=== PATIENT | female | born 1960 | race American Indian/Alaskan Native ===

== ENCOUNTER 2017-11-07 10:44 | Emergency (ER) | payer BC, OTHER ==
[2017-11-07 11:04] VITALS: BP 130/67; PULSE 63; RESP 16; TEMP 98; O2SAT 96
[2017-11-07] MEDS ORDERED: Sodium Chloride 0.9% 1,000 ML IV STA (11:15)
--- NOTE | 2017-11-07 11:15 | ED PDOC ---
HPI: General Adult Time Seen by Provider: 11/07/17 10:55 Chief Complaint (Nursing): GI Problem Chief Complaint (Provider): rib pain, nausea/diarrhea History Per: Patient History/Exam Limitations: no limitations Onset/Duration Of Symptoms: Days (2), Gradual Current Symptoms Are (Timing): Still Present Severity: Moderate Additional Complaint(s): 57yo female c/o flu like symptoms of myalgia, rib pains, cough, mild headache, nausea. Past Medical History Reviewed: Historical Data, Nursing Documentation, Vital Signs Vital Signs: Last Vital Signs Temp 98.0 F 11/07/17 11:04 Pulse 63 11/07/17 11:04 Resp 16 11/07/17 11:04 BP 130/67 11/07/17 11:04 Pulse Ox 96 11/07/17 11:15 - Medical History PMH: Anxiety, Bipolar Disorder, CHF Other PMH: fibromyalgia - Surgical History Other surgeries: partial hysterectomy - Family History Family History: States: Unknown Family Hx - Living Arrangements Living Arrangements: With Family - Social History Current smoker - smoking cessation education provided: Yes - Home Medications Home Medications: Ambulatory Orders Medication Instructions Recorded Ibuprofen [Motrin Tab] 600 mg PO Q6 PRN #15 tab 11/07/17 Ondansetron [Zofran] 4 mg PO Q6H PRN #10 tab 11/07/17 Oseltamivir [Tamiflu] 75 mg PO BID #10 cap 11/07/17 - Allergies Allergies/Adverse Reactions: Allergies Allergy/AdvReac Type Severity Reaction Status Date / Time banana Allergy Severe ANAPHYLAXIS Verified 11/07/17 11:01 hazelnut Allergy Severe ANAPHYLAXIS Verified 11/07/17 11:01 MACADAMIA NUT Allergy Severe ANAPHYLAXIS Uncoded 01/24/16 10:13 Review of Systems ROS Statement: Except As Marked, All Systems Reviewed And Found Negative Constitutional: Negative for: Fever, Chills Eyes: Negative for: Eyelid Inflammation ENT: Positive for: Throat Pain. Negative for: Ear Pain, Nose Pain Cardiovascular: Negative for: Chest Pain, Palpitations Respiratory: Positive for: Cough. Negative for: Shortness of Breath Gastrointestinal: Positive for: Nausea Genitourinary Female: Negative for: Dysuria Neurological: Positive for: Headache, Dizziness. Negative for: Weakness, Numbness Psych: Negative for: Suicidal ideation Physical Exam - Reviewed Nursing Documentation Reviewed: Yes Vital Signs Reviewed: Yes - Physical Exam Appears: Positive for: Well, Non-toxic, No Acute Distress Head Exam: Positive for: ATRAUMATIC, NORMAL INSPECTION, NORMOCEPHALIC Skin: Positive for: Normal Color, Warm, DRY Eye Exam: Positive for: EOMI, Normal appearance, PERRL ENT: Positive for: Normal ENT Inspection Neck: Positive for: Normal, Painless ROM Cardiovascular/Chest: Positive for: Regular Rate, Rhythm Respiratory: Positive for: CNT, Normal Breath Sounds Gastrointestinal/Abdominal: Positive for: Normal Exam, Bowel Sounds, Soft Back: Positive for: Normal Inspection Extremity: Positive for: Normal ROM Neurologic/Psych: Positive for: Alert, Oriented - Laboratory Results Result Diagrams: 11/07/17 11:55 11/07/17 11:55 - ECG O2 Sat by Pulse Oximetry: 96 Medical Decision Making Medical Decision Making: labs reviewed, + influenza chem and cbc otherwise unremarkable IVF and analgesic initiated Will DC Rx tamiflu, risks/benefits of medication discussed Followup PMD, avoid contact others x7d Disposition - Clinical Impression Clinical Impression: Influenza, Nausea - Patient ED Disposition Is Patient to be Admitted: No Counseled Patient/Family Regarding: Studies Performed, Diagnosis, Need For Followup, Rx Given - Disposition Disposition: Routine/Home Disposition Time: 13:01 Condition: STABLE Additional Instructions: Return to ER for any difficulty breathing, worsening symptoms or any concern. Prescriptions: Ibuprofen [Motrin Tab] 600 mg PO Q6 PRN #15 tab PRN Reason: Pain, Moderate (4-7) Ondansetron [Zofran] 4 mg PO Q6H PRN #10 tab PRN Reason: Nausea/Vomiting Oseltamivir [Tamiflu] 75 mg PO BID #10 cap Instructions: Influenza (ED), Acute Nausea and Vomiting (ED), Musculoskeletal Pain (ED) Forms: [employer] (Kiswahili), [facility] ED School/Work Excuse
[2017-11-07 11:53] LABS: SQUAMOUS EPITHIAL 1 /hpf (0-5); URINE BACTERIA RARE (<OCC); URINE BILIRUBIN NEGATIVE (NEGATIVE); URINE BLOOD SMALL (NEGATIVE); URINE CLARITY SLIGHTY-CLOUDY (Clear); URINE COLOR YELLOW (YELLOW); URINE GLUCOSE (UA) NEG (Normal); URINE LEUKOCYTE ESTERASE NEG Leu/uL (Negative); URINE NITRATE NEGATIVE (NEGATIVE); URINE PROTEIN NEGATIVE (NEGATIVE); URINE UROBILINOGEN 0.2-1.0 mg/dL (0.2-1.0)
[2017-11-07 12:32] LABS: BASO # 0.1 K/uL (0.0-0.2); BASO % 0.9 % (0.0-2.0); EOS # 0.1 K/uL (0.0-0.7); EOS % 0.8 % (0.0-4.0); LYMPH # 3.3 K/uL (1.0-4.3); LYMPH % 30.3 % (20.0-40.0); MEAN CELL VOLUME 84.6 fl (81.0-99.0); MEAN CORPUSCULAR HEMOGLOBIN 27.7 pg (27.0-31.0); MEAN CORPUSCULAR HGB CONC 32.7 g/dL (33.0-37.0); MONO # 0.6 K/uL (0.0-0.8); MONO % 5.3 % (0.0-10.0); NEUT # 6.8 K/uL (1.8-7.0); NEUT % 62.7 % (50.0-75.0); NRBC % 0.1 % (0.0-0.0); RBC 5.06 Mil/uL (3.80-5.20); RED CELL DISTRIBUTION WIDTH 13.3 % (11.5-14.5); WHITE BLOOD COUNT 10.9 K/uL (4.8-10.8)
[2017-11-07 12:45] LABS: ALB/GLOB RATIO 1.2 (1.0-2.1); ALBUMIN 4.5 g/dL (3.5-5.0); CALCIUM 9.7 mg/dL (8.4-10.2); GFR AFRICAN-AMERICAN > 60; GFR NON-AFRICAN AMERICAN > 60; LIPASE 51 U/L (23-300)
[2017-11-07 12:57] LABS: ALT/SGPT 32 U/L (9-52); AST/SGOT 29 U/L (14-36); BLOOD UREA NITROGEN 16 mg/dl (7-17)
== END 2017-11-07 13:23 | disposition home or self-care (01) ==
LOC: H.ER 10:44
DX: J11.1 Influenza due to unidentified influenza virus with other respiratory manifestations (principal); R11.0 Nausea; Z86.59 Personal history of other mental and behavioral disorders; I50.9 Heart failure, unspecified; F17.200 Nicotine dependence, unspecified, uncomplicated
CPT/HCPCS: 80053; 81003; 82550; 83690; 84484; 85025; 87804; 96374; 99284; J2405; J7040

== ENCOUNTER 2017-12-18 08:04 | Emergency (ER) | payer BC ==
[2017-12-18 08:27] VITALS: RESP 16
[2017-12-18] MEDS ORDERED: Albuterol-Ipratrop 3 mg / 0.5 (3 ml) UD INH STA ×2 (09:42→09:43)
[2017-12-18] MEDS ORDERED: Sodium Chloride 0.9% 1,000 ML IV STA (09:44)
--- NOTE | 2017-12-18 09:47 | ED PDOC ---
HPI: General Adult Time Seen by Provider: 12/18/17 09:30 Chief Complaint (Nursing): Cough, Cold, Congestion Chief Complaint (Provider): uri/cough History Per: Patient (57 y/o female h/o Bipolar disorder/Fibromyalgia here with complaint of cough x 2 days associated now with chest tightness since last night. Denies any fevers or chills. No h/o asthma/smoking. ) Past Medical History Reviewed: Historical Data, Nursing Documentation, Vital Signs Vital Signs: Last Vital Signs Temp 97 F L 12/18/17 08:17 Pulse 83 12/18/17 08:17 Resp 16 12/18/17 08:17 BP 135/83 12/18/17 08:17 Pulse Ox 98 12/18/17 11:45 - Medical History PMH: Anxiety, Bipolar Disorder, CHF - Family History Family History: States: Unknown Family Hx - Home Medications Home Medications: Ambulatory Orders Medication Instructions Recorded Ibuprofen [Motrin Tab] 600 mg PO Q6 PRN #15 tab 11/07/17 Ondansetron [Zofran] 4 mg PO Q6H PRN #10 tab 11/07/17 Oseltamivir [Tamiflu] 75 mg PO BID #10 cap 11/07/17 Acetaminophen [Acetaminophen Extra 2 tab PO Q6 PRN #24 tablet 12/18/17 Strength] Albuterol 0.083% [Albuterol 0.083% 2.5 mg IH Q8 PRN #100 neb 12/18/17 Inhal Shantel (2.5 mg/3 ml) UD] Mask, Face [Nebulizer Aerosol Mask 1 dev XX PRN PRN #1 dev 12/18/17 Adult] Nebulizer [Aeroeclipse II] 1 each MC Q8 PRN #1 each 12/18/17 Oseltamivir [Tamiflu] 75 mg PO BID #9 cap 12/18/17 Prednisone [Deltasone] 3 tab PO DAILY #12 tablet 12/18/17 - Allergies Allergies/Adverse Reactions: Allergies Allergy/AdvReac Type Severity Reaction Status Date / Time banana Allergy Severe ANAPHYLAXIS Verified 11/07/17 11:01 hazelnut Allergy Severe ANAPHYLAXIS Verified 11/07/17 11:01 MACADAMIA NUT Allergy Severe ANAPHYLAXIS Uncoded 01/24/16 10:13 Review of Systems ROS Statement: Except As Marked, All Systems Reviewed And Found Negative Cardiovascular: Positive for: Chest Pain Respiratory: Positive for: Cough Physical Exam - Reviewed Nursing Documentation Reviewed: Yes Vital Signs Reviewed: Yes - Physical Exam Appears: Positive for: Well, Non-toxic, No Acute Distress Head Exam: Positive for: ATRAUMATIC, NORMAL INSPECTION, NORMOCEPHALIC Skin: Positive for: Normal Color, Warm, DRY Eye Exam: Positive for: EOMI, Normal appearance, PERRL ENT: Positive for: Normal ENT Inspection Neck: Positive for: Normal, Painless ROM Cardiovascular/Chest: Positive for: Regular Rate, Rhythm Respiratory: Positive for: CNT, Normal Breath Sounds Gastrointestinal/Abdominal: Positive for: Normal Exam, Bowel Sounds, Soft Back: Positive for: Normal Inspection Extremity: Positive for: Normal ROM Neurologic/Psych: Positive for: Alert, Oriented - Laboratory Results Result Diagrams: 12/18/17 10:05 12/18/17 09:00 - ECG ECG Rhythm: Positive for: Sinus Rhythm (NSR 64BPM; NO ECTOPY NO ACUTE CHANGES) O2 Sat by Pulse Oximetry: 98 - Progress ED Course And Treament: FLU A POSITIVE NS 1 LITER 500ML PER HOUR DUONEB X 2 DOSES SOLUMEDROL 125 MG IV X 1 DOSE TAMIFLU 75MG X 1 DOSE Disposition - Clinical Impression Clinical Impression: Influenza A, Asthma exacerbation - Patient ED Disposition Is Patient to be Admitted: No - Disposition Disposition: Routine/Home Disposition Time: 12:21 Condition: FAIR Additional Instructions: FOLLOW UP WITH YOUR PMD WITHOUT FAIL IN 2-3 DAYS PLEASE Prescriptions: Acetaminophen [Acetaminophen Extra Strength] 2 tab PO Q6 PRN #24 tablet PRN Reason: Fever >100.4 F Albuterol 0.083% [Albuterol 0.083% Inhal Shantel (2.5 mg/3 ml) UD] 2.5 mg IH Q8 PRN #100 neb PRN Reason: Shortness Of Breath Mask, Face [Nebulizer Aerosol Mask Adult] 1 dev XX PRN PRN #1 dev PRN Reason: Shortness Of Breath Nebulizer [Aeroeclipse II] 1 each MC Q8 PRN #1 each PRN Reason: Shortness Of Breath Oseltamivir [Tamiflu] 75 mg PO BID #9 cap Prednisone [Deltasone] 3 tab PO DAILY #12 tablet Instructions: Asthma, Adult (DC), Flu, Adult (DC) Forms: [employer] (Kyrgyz), [facility] ED School/Work Excuse
[2017-12-18 10:04] LABS: VENOUS BLOOD GAS BASE EXCESS -0.8 mmol/L (0.0-2.0); VENOUS BLOOD GAS PCO2 41 mmHg (40-60); VENOUS BLOOD GAS PO2 39 mm/Hg (30-55); VENOUS BLOOD PH 7.38 (7.32-7.43)
[2017-12-18 10:11] LABS: BASO % 0.5 % (0.0-2.0); EOS # 0.1 K/uL (0.0-0.7); EOS % 1.8 % (0.0-4.0); HEMOGLOBIN 14.3 g/dL (12.0-16.0); LYMPH # 1.4 K/uL (1.0-4.3); LYMPH % 18.9 % (20.0-40.0); MEAN CELL VOLUME 85.4 fl (81.0-99.0); MEAN CORPUSCULAR HEMOGLOBIN 27.7 pg (27.0-31.0); MEAN CORPUSCULAR HGB CONC 32.5 g/dL (33.0-37.0); MEAN PLATELET VOLUME 8.8 fl (7.2-11.7); MONO % 13.3 % (0.0-10.0); NEUT # 4.8 K/uL (1.8-7.0); NEUT % 65.5 % (50.0-75.0); NRBC % 0.1 % (0.0-0.0); RBC 5.15 Mil/uL (3.80-5.20); RED CELL DISTRIBUTION WIDTH 13.7 % (11.5-14.5); WHITE BLOOD COUNT 7.3 K/uL (4.8-10.8)
[2017-12-18 10:25] LABS: CALCIUM 9.4 mg/dL (8.4-10.2); GFR AFRICAN-AMERICAN > 60; GFR NON-AFRICAN AMERICAN > 60
--- NOTE | 2017-12-18 10:28 | RAD ---
HISTORY: cp COMPARISON: Chest radiographs 12/18/2017 TECHNIQUE: Chest PA and lateral FINDINGS: LUNGS: No active pulmonary disease. PLEURA: No significant pleural effusion identified. No pneumothorax apparent. CARDIOVASCULAR: Normal. OSSEOUS STRUCTURES: No significant abnormalities. VISUALIZED UPPER ABDOMEN: Normal. OTHER FINDINGS: None. IMPRESSION: No interval acute cardiopulmonary disease appreciated.
[2017-12-18 10:34] LABS: B-TYPE NATRIURETIC PEPTIDE 32.8 pg/ml (0-900)
[2017-12-18 10:35] LABS: BLOOD UREA NITROGEN 12 mg/dl (7-17)
[2017-12-18 13:00] VITALS: BP 125/80; PULSE 89; TEMP 97.9; O2SAT 99
--- NOTE | 2017-12-19 18:10 | CARD ---
APPROVED REPORT EKG Measurement Heart [id number] <Conclusion> Normal sinus rhythm Possible Left atrial enlargement Borderline ECG
== END 2017-12-18 13:03 | disposition home or self-care (01) ==
LOC: H.ER 08:04
DX: J09.X2 Influenza due to identified novel influenza A virus with other respiratory manifestations (principal); J45.901 Unspecified asthma with (acute) exacerbation; F31.9 Bipolar disorder, unspecified; F41.9 Anxiety disorder, unspecified; M79.7 Fibromyalgia; I50.9 Heart failure, unspecified
CPT/HCPCS: 71046; 80048; 82803; 83735; 83880; 84484; 85025; 87040; 87804; 93005; 96361; 96374; 96375; 99283; J2405; J2930; J7040

== ENCOUNTER 2018-05-06 07:59 | Emergency (ER) | payer OTHER ==
[2018-05-06] MEDS ORDERED: Albuterol-Ipratrop 3 mg / 0.5 (3 ml) UD IH STA (08:33)
[2018-05-06] MEDS ORDERED: Albuterol-Ipratrop 3 mg / 0.5 (3 ml) UD ONE (08:38)
--- NOTE | 2018-05-06 08:38 | ED PDOC ---
HPI: CCC, URI, Sore Throat Time Seen by Provider: 05/06/18 08:15 Chief Complaint (Nursing): Cough, Cold, Congestion Chief Complaint (Provider): Cough, congestion and headache History Per: Patient History/Exam Limitations: no limitations Onset/Duration Of Symptoms: Days (x2) Current Symptoms Are (Timing): Still Present Location Of Pain: Headache Associated Symptoms: Chills, Cough, Nasal Congestion. denies: Fever, Sputum Ear Symptoms: Bilateral: None Additional Complaint(s): Leanna Wright is a 58 year old female, with a past medical history of asthma and fibromyalgia, who presents to the emergency department complaining of a nonproductive cough, congestion and headache onset for x2 days. Patient reports chest pain and headache with cough. Patient states he has had chills but denies any fever. No further medical complaints. PMD: Shirley Costello Past Medical History Reviewed: Historical Data, Nursing Documentation, Vital Signs Vital Signs: Last Vital Signs Temp 97.8 F 05/06/18 08:05 Pulse 79 05/06/18 08:05 Resp 19 05/06/18 08:05 BP 147/90 05/06/18 08:05 Pulse Ox 96 05/06/18 08:42 - Medical History PMH: Anxiety, Asthma, Bipolar Disorder, CHF, Fibromyalgia - Surgical History Surgical History: No Surg Hx - Family History Family History: States: Unknown Family Hx - Home Medications Home Medications: Ambulatory Orders Medication Instructions Recorded Ibuprofen [Motrin Tab] 600 mg PO Q6 PRN #15 tab 11/07/17 Ondansetron [Zofran] 4 mg PO Q6H PRN #10 tab 11/07/17 Oseltamivir [Tamiflu] 75 mg PO BID #10 cap 11/07/17 Acetaminophen [Acetaminophen Extra 2 tab PO Q6 PRN #24 tablet 12/18/17 Strength] Albuterol 0.083% [Albuterol 0.083% 2.5 mg IH Q8 PRN #100 neb 12/18/17 Inhal Shantel (2.5 mg/3 ml) UD] Mask, Face [Nebulizer Aerosol Mask 1 dev XX PRN PRN #1 dev 12/18/17 Adult] Nebulizer [Aeroeclipse II] 1 each MC Q8 PRN #1 each 12/18/17 Oseltamivir [Tamiflu] 75 mg PO BID #9 cap 12/18/17 Prednisone [Deltasone] 3 tab PO DAILY #12 tablet 12/18/17 Azithromycin [Zithromax] 250 mg PO DAILY #6 tab 05/06/18 - Allergies Allergies/Adverse Reactions: Allergies Allergy/AdvReac Type Severity Reaction Status Date / Time banana Allergy Severe ANAPHYLAXIS Verified 11/07/17 11:01 hazelnut Allergy Severe ANAPHYLAXIS Verified 11/07/17 11:01 MACADAMIA NUT Allergy Severe ANAPHYLAXIS Uncoded 01/24/16 10:13 Review of Systems ROS Statement: Except As Marked, All Systems Reviewed And Found Negative Constitutional: Positive for: Chills. Negative for: Fever ENT: Positive for: Nose Congestion Cardiovascular: Positive for: Chest Pain (w/ coughs) Respiratory: Positive for: Cough Neurological: Positive for: Headache Physical Exam - Reviewed Nursing Documentation Reviewed: Yes Vital Signs Reviewed: Yes - Physical Exam Appears: Positive for: Non-toxic Head Exam: Positive for: ATRAUMATIC, NORMAL INSPECTION, NORMOCEPHALIC Skin: Positive for: Normal Color, Warm, Dry Eye Exam: Positive for: Normal appearance, EOMI, PERRL ENT: Positive for: Pharyngeal Erythema (mild). Negative for: Tonsillar Exudate Neck: Positive for: Painless ROM, Supple Cardiovascular/Chest: Positive for: Regular Rate, Rhythm. Negative for: Murmur Respiratory: Positive for: Rhonchi, Wheezing (expiratory wheezing bilaterally). Negative for: Respiratory Distress Gastrointestinal/Abdominal: Positive for: Normal Exam, Soft. Negative for: Tenderness Back: Positive for: Normal Inspection Extremity: Positive for: Normal ROM (upper and lower extremities). Negative for : Tenderness, Deformity, Swelling Neurologic/Psych: Positive for: Alert, Oriented - ECG O2 Sat by Pulse Oximetry: 96 (RA) Pulse Ox Interpretation: Normal Medical Decision Making Medical Decision Making: Time: 08:15 Initial Plan: --Chest two views (PA/LAT) [RAD] --Duoneb 3 ml INH --Peak flow pre/post Tx --Reevaluation ----- Scribe Attestation: Documented by Louie Wong, acting as a scribe for Rivera Arvizu MD. Provider Scribe Attestation: All medical record entries made by the Scribe were at my direction and personally dictated by me. I have reviewed the chart and agree that the record accurately reflects my personal performance of the history, physical exam, medical decision making, and the department course for this patient. I have also personally directed, reviewed, and agree with the discharge instructions and disposition. Disposition - Clinical Impression Clinical Impression: Bronchitis - Patient ED Disposition Is Patient to be Admitted: No Counseled Patient/Family Regarding: Studies Performed, Diagnosis, Need For Followup, Rx Given - Disposition Disposition: Routine/Home Disposition Time: 08:52 Condition: FAIR Prescriptions: Azithromycin [Zithromax] 250 mg PO DAILY #6 tab Instructions: Acute Bronchitis Forms: [employer] (Setswana), [facility] ED School/Work Excuse
[2018-05-06] MEDS ORDERED: Naproxen 500 MG TAB PO ONE (09:07)
[2018-05-06] MEDS ORDERED: Naproxen 500 MG TAB PO STA (09:13)
[2018-05-06 09:28] VITALS: BP 135/80; PULSE 75; RESP 16; TEMP 97.9; O2SAT 100
--- NOTE | 2018-05-06 11:29 | RAD ---
Date of service: 05/06/2018 HISTORY: cough COMPARISON: 12/18/2017 TECHNIQUE: Chest PA and lateral FINDINGS: LUNGS: There is interval mostly linear to bandlike opacity at the left lung base in atelectatic changes versus patchy infiltrate are considerations. Clinical correlation and follow-up recommended. PLEURA: No significant pleural effusion identified. No pneumothorax apparent. CARDIOVASCULAR: Normal. OSSEOUS STRUCTURES: No significant abnormalities. VISUALIZED UPPER ABDOMEN: Normal. OTHER FINDINGS: None. IMPRESSION: Interval- linear to bandlike opacity left lung base compatible with atelectasis and/or infiltrate. Follow-up to resolution recommended.
== END 2018-05-06 09:23 | disposition home or self-care (01) ==
LOC: H.ER 07:59
DX: J40 Bronchitis, not specified as acute or chronic (principal)